=== PATIENT | female | born 2000 | race American Indian/Alaskan Native ===

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

== ENCOUNTER 2018-10-30 21:34 | Emergency (ER) | payer SELFPAY ==
[2018-10-30 21:39] VITALS: BP 128/91
[2018-10-30 22:04] LABS: Basophils # (Auto) 0.1 K/mm3 (0.0-0.1); Basophils % (Auto) 1.5 % (0.0-1.8); Eosinophils # (Auto) 0.2 K/mm3 (0.0-0.4); Eosinophils % (Auto) 2.3 % (0.0-4.3); Hematocrit 38.5 % (30.3-42.9); Hemoglobin 13.3 gm/dl (10.1-14.3); Lymphocytes # (Auto) 2.8 K/mm3 (1.2-5.4); Lymphocytes % (Auto) 39.4 % (13.4-35.0); Mean Corpuscular HGB Conc 35 % (30-34); Mean Corpuscular Volume 90 fl (79-97); Monocytes # (Auto) 0.6 K/mm3 (0.0-0.8); Monocytes % (Auto) 8.7 % (0.0-7.3); Platelet Count 226 K/mm3 (140-440); Red Blood Count 4.29 M/mm3 (3.65-5.03); Red Cell Distribution Width 14.1 % (13.2-15.2)
[2018-10-30 22:15] LABS: Bilirubin,Urine NEG (Negative); Blood,Urine NEG (Negative); Color,Urine Yellow (Yellow); Mucus,Urine FEW /HPF; Protein,Urine <15 mg/dL mg/dL (Negative); Urobilinogen,Urine < 2.0 mg/dL (<2.0)
[2018-10-30 22:30] LABS: Alanine Aminotransferase 24 units/L (7-56); BUN/Creatinine Ratio 13; Blood Urea Nitrogen 9 mg/dL (7-17); Hemolysis Index 8
[2018-10-30] MEDS ORDERED: NACL 0.9% 1000 ML 1,000 ML ONE (23:43)
[2018-10-30] MEDS ORDERED: NACL 0.9% 1000 ML 1,000 ML IV ONE (23:43)
== END 2018-10-31 00:30 | disposition left against medical advice (07) ==
LOC: ED 21:34
DX: R11.2 Nausea with vomiting, unspecified (principal); Z53.21 Procedure and treatment not carried out due to patient leaving prior to being seen by health care provider
CPT/HCPCS: 36415; 80053; 81001; 84703; 85025; J7030

== ENCOUNTER 2018-12-19 15:38 | Emergency (ER) | payer SELFPAY ==
[2018-12-19 15:49] VITALS: BP 129/89
--- NOTE | 2018-12-19 15:51 | Emergency Department Report ---
Blank Doc - Documentation Documentation: This is a 18-year-old female that presents with intermittent headaches and thomas sea. This initial assessment/diagnostic orders/clinical plan/treatment(s) is/are subject to change based on patient's health status, clinical progression and re- assessment by fellow clinical providers in the ED. Further treatment and workup at subsequent clinical providers discretion. Patient/guardians urged not to elope from the ED as their condition may be serious if not clinically assessed a nd managed. Initial orders include: 1- Patient sent to [facility] for further evaluation and treatment 2- UA
[2018-12-19 16:29] LABS: Bilirubin,Urine NEG (Negative); Blood,Urine NEG (Negative); Color,Urine Yellow (Yellow); Protein,Urine <15 mg/dL mg/dL (Negative); Urobilinogen,Urine < 2.0 mg/dL (<2.0)
[2018-12-19 16:32] LABS: HCG Qualitative,Urine Negative (Negative)
[2018-12-19] MEDS ORDERED: IBUPROFEN PO ONE (17:08)
--- NOTE | 2018-12-19 17:10 | Emergency Department Report ---
ED Dysuria HPI - HPI Chief Complaint: Nausea/Vomiting/Diarrhea Stated Complaint: NAUSEA/HEADACHES Time Seen by Provider: 12/19/18 15:50 Duration: 1 Day Severity: None Symptoms: Dysuria: No, Frequency: No, Suprapubic Pain: No, Flank Pain: No, Fever: No, Hematuria: No, Abdominal Pain: No, Previous UTI's: No Other History: Patient is a 18-year-old female who comes to the ER complaining of nausea and headache intermittently off and on for a couple days. She states her last menstrual cycle was November 28. She denies any medical history or surgeries. She is on no home medications. Family reports the patient was concerned that she was and she came to the emergency room. She has no vaginal bleeding or abdominal pain no vaginal discharge. She is ambulatory with normal vital signs, nontoxic and afebrile. ED Review of Systems ROS: Stated complaint: NAUSEA/HEADACHES Other details as noted in HPI Comment: All other systems reviewed and negative ED Past Medical Hx - Past Medical History Previous Medical History?: Yes Hx Hypertension: No Hx Diabetes: No Hx Deep Vein Thrombosis: No Hx Renal Disease: No Hx Sickle Cell Disease: No Hx Seizures: No Hx Asthma: No Hx HIV: No Additional medical history: pre-eclampsia - Surgical History Past Surgical History?: No Additional Surgical History: vaginal - Social History Smoking Status: Current Every Day Smoker Substance Use Type: None - Medications Home Medications: Home Medications Medication Instructions Recorded Confirmed Last Taken Type Miconazole Nitrate [Monistat 7] 44 gm VG QHS #7 cmb.pf.crm 07/06/15 Unknown Rx Ondansetron [Zofran Odt] 4 mg PO Q8H PRN #15 tab.rapdis 07/06/15 Unknown Rx metroNIDAZOLE 0.75% [Vandazole 1 applicator VG QHS #5 tube 07/06/15 Unknown Rx 0.75% VAGINAL] Ciprofloxacin HCl [Ciprofloxacin 500 mg PO BID #14 tablet 12/05/15 Unknown Rx TAB] HYDROcodone/APAP 5-325 [[place] 1 each PO Q6HR PRN #10 tablet 12/05/15 Unknown Rx 5/325] Ibuprofen [Motrin 600 MG tab] 600 mg PO Q8H PRN #30 tablet 12/05/15 Unknown Rx Nitrofurantoin Macrocrystal 100 mg PO BID 5 Days #10 capsule 11/25/17 Unknown Rx [Nitrofurantoin] metroNIDAZOLE [Flagyl] 500 mg PO Q8HR 7 Days #21 tablet 04/20/18 Unknown Rx Dysuria Exam - Exam General: Vital signs noted. No distress. Alert and acting appropriately. Exam: Yes Moist Mucous Membranes, No CVA Tenderness, No Abdominal Tenderness, No Rigidity or Guarding Labs: Lab Results 12/19/18 Range/Units 16:09 Urine Color Yellow (Yellow) Urine Turbidity Clear (Clear) Urine pH 6.0 (5.0-7.0) Ur Specific [place] 1.016 (1.003-1.030) Urine Protein <15 mg/dl (Negative) mg/dL Urine Glucose (UA) Neg (Negative) mg/dL Urine Ketones Neg (Negative) mg/dL Urine Blood Neg (Negative) Urine Nitrite Neg (Negative) Urine Bilirubin Neg (Negative) Urine Urobilinogen < 2.0 (<2.0) mg/dL Ur Leukocyte Esterase Neg (Negative) Urine WBC (Auto) 2.0 (0.0-6.0) /HPF Urine RBC (Auto) 3.0 (0.0-6.0) /HPF U Epithel Cells (Auto) 1.0 (0-13.0) /HPF Urine HCG, Qual Negative (Negative) ED Course Vital Signs 12/19/18 15:47 Temperature 98.1 F Pulse Rate 100 H Respiratory 18 Rate Blood Pressure 129/89 O2 Sat by Pulse 100 Oximetry ED Medical Decision Making - Medical Decision Making Vital Signs 12/19/18 15:47 Temperature 98.1 F Pulse Rate 100 H Respiratory 18 Rate Blood Pressure 129/89 O2 Sat by Pulse 100 Oximetry Labs 12/19/18 16:09 Urine Color Yellow Urine Turbidity Clear Urine pH 6.0 Ur Specific [place] 1.016 Urine Protein <15 mg/dl Urine Glucose (UA) Neg Urine Ketones Neg Urine Blood Neg Urine Nitrite Neg Urine Bilirubin Neg Urine Urobilinogen < 2.0 Ur Leukocyte Esterase Neg Urine WBC (Auto) 2.0 Urine RBC (Auto) 3.0 U Epithel Cells (Auto) 1.0 Urine HCG, Qual Negative PREG NEG MOTRIN FOR HEADACHE DC HOME WITH FAMILY - Differential Diagnosis RO PREG Critical care attestation.: If time is entered above; I have spent that time in minutes in the direct care of this critically ill patient, excluding procedure time. ED Disposition Clinical Impression: Headache Disposition: [id number]-01 TO HOME OR SELFCARE Is pt being admited?: No Does the pt Need Aspirin: No Condition: Stable Instructions: Acute Headache (ED) Additional Instructions: DIET TOLERATED MEDS ORDERED TODAY IN ER FOLLOW INSTRUCTIONS ON THE BOTTLE FOLLOW UP PCP WITHIN 48 HOURS TO ENSURE YOU ARE GETTING BETTER ACTIVITY TOLERATED MOTRIN OR TYLENOL FOR PAIN OR FEVER RETURN TO THE ER FOR WORSENING SYMPTOMS NOT RELIEVED BY YOUR MEDICATIONS. PREG NEGATIVE Referrals: MATEUS PATEL MD [Staff Physician] - 3-5 Days Time of Disposition: 17:08
== END 2018-12-19 17:29 | disposition home or self-care (01) ==
LOC: ED 15:38
DX: R11.2 Nausea with vomiting, unspecified (principal); R19.7 Diarrhea, unspecified; R51 Headache; F17.200 Nicotine dependence, unspecified, uncomplicated; Z79.1 Long term (current) use of non-steroidal anti-inflammatories (NSAID); Z79.899 Other long term (current) drug therapy
CPT/HCPCS: 81001; 81025; 99283

== ENCOUNTER 2019-02-06 18:24 | Emergency (ER) | payer SELFPAY ==
[2019-02-06] MEDS ORDERED: ZOFRAN IV ONE (18:38)
[2019-02-06] MEDS ORDERED: BENADRYL IV ONE (18:38)
--- NOTE | 2019-02-06 18:38 | Event Note ---
ED Screening Note Date of service: 02/06/19 Time: 18:34 ED Screening Note: 18 y o with hx of migraine presents with sharp intermittent headaches thats not resolved with advil positive nausea, intermittent blurred vision This initial assessment/diagnostic orders/clinical plan/treatment(s) is/are subject to change based on patients health status, clinical progression and re- assessment by fellow clinical providers in the ED. Further treatment and workup at subsequent clinical providers discretion. Patient/guardian urged not to elope from the ED as their condition may be serious if not clinically assessed and managed. Initial orders include: ua,upt IV benadryl,zofran, toradol
[2019-02-06 19:43] LABS: Amorphous Crystals,Urine Few; Bilirubin,Urine NEG (Negative); Blood,Urine NEG (Negative); Color,Urine Yellow (Yellow); HCG Qualitative,Urine Negative (Negative); Protein,Urine <15 mg/dL mg/dL (Negative); Urobilinogen,Urine < 2.0 mg/dL (<2.0)
[2019-02-06] MEDS ORDERED: FIORICET PO ONE (20:18)
--- NOTE | 2019-02-06 22:07 | Emergency Department Report ---
ED General Adult HPI - General Chief complaint: Headache Stated complaint: MIGRANE/MILK LEAKING/PAIN Time Seen by Provider: 02/06/19 18:34 Source: patient Mode of arrival: Ambulatory Limitations: No Limitations - History of Present Illness Initial comments: Patient is a 18-year-old female with a history of chronic migraine headaches who presents to the ED with complaint of acute exacerbation of chronic migraine headaches for the last 1 week, worse in the last 2 days. Patient states that she's been taking [id number] pain medication with no relief. Patient states that this is typical of her chronic migraine headaches and not worst headache of her life. Patient also complains of nausea but no vomiting. Patient denies nasal and sinus congestion, frontal sinus pressure, sore throat, fever, chills, cough, change in vision, neck pain, chest pain or shortness of breath or abdominal pain. MD Complaint: migraine headache -: Sudden, week(s) (1) Location: head Radiation: non-radiation Severity scale (0 -10): 10 Quality: aching, sharp Consistency: constant Improves with: none Worsens with: none Associated Symptoms: denies other symptoms, headaches, nausea/vomiting. denies: confusion, chest pain, cough, diaphoresis, fever/chills, loss of appetite, malaise, rash, seizure, shortness of breath, syncope, weakness, other Treatments Prior to Arrival: NSAID - Related Data Previous Rx's Medication Instructions Recorded Last Taken Type Miconazole Nitrate [Monistat 7] 44 gm VG QHS #7 cmb.pf.crm 07/06/15 Unknown Rx Ondansetron [Zofran Odt] 4 mg PO Q8H PRN #15 tab.rapdis 07/06/15 Unknown Rx metroNIDAZOLE 0.75% [Vandazole 1 applicator VG QHS #5 tube 07/06/15 Unknown Rx 0.75% VAGINAL] Ciprofloxacin HCl [Ciprofloxacin 500 mg PO BID #14 tablet 12/05/15 Unknown Rx TAB] HYDROcodone/APAP 5-325 [[place] 1 each PO Q6HR PRN #10 tablet 12/05/15 Unknown Rx 5/325] Ibuprofen [Motrin 600 MG tab] 600 mg PO Q8H PRN #30 tablet 12/05/15 Unknown Rx Nitrofurantoin Macrocrystal 100 mg PO BID 5 Days #10 capsule 11/25/17 Unknown Rx [Nitrofurantoin] metroNIDAZOLE [Flagyl] 500 mg PO Q8HR 7 Days #21 tablet 04/20/18 Unknown Rx Butalb/Acetamin/Caff 50-325-40 1 tab PO Q6HR PRN #12 tab 02/06/19 Unknown Rx [Fioricet 50-325-40] Promethazine [Phenergan] 25 mg PO Q6HR PRN #24 tab 02/06/19 Unknown Rx SUMAtriptan SUCCINATE [Imitrex] 50 mg PO Q8H PRN #24 tablet 02/06/19 Unknown Rx Allergies Allergy/AdvReac Type Severity Reaction Status Date / Time ketorolac tromethamine Allergy Swelling Verified 07/06/15 19:20 [From Toradol] tramadol Allergy Swelling Verified 07/06/15 19:21 ED Review of Systems ROS: Stated complaint: MIGRANE/MILK LEAKING/PAIN Other details as noted in HPI Constitutional: denies: chills, fever Eyes: denies: eye pain, eye discharge, vision change ENT: denies: ear pain, throat pain Respiratory: denies: cough, shortness of breath, wheezing Cardiovascular: denies: chest pain, palpitations Endocrine: no symptoms reported Gastrointestinal: nausea. denies: abdominal pain, diarrhea Genitourinary: denies: urgency, dysuria, discharge Musculoskeletal: denies: back pain, joint swelling, arthralgia Skin: denies: rash, lesions Neurological: headache. denies: weakness, paresthesias Psychiatric: denies: anxiety, depression Hematological/Lymphatic: denies: easy bleeding, easy bruising ED Past Medical Hx - Past Medical History Previous Medical History?: Yes Hx Hypertension: No Hx Diabetes: No Hx Deep Vein Thrombosis: No Hx Renal Disease: No Hx Sickle Cell Disease: No Hx Seizures: No Hx Asthma: No Hx HIV: No Additional medical history: pre-eclampsia - Surgical History Past Surgical History?: No Additional Surgical History: vaginal - Social History Smoking Status: Current Every Day Smoker Substance Use Type: None - Medications Home Medications: Home Medications Medication Instructions Recorded Confirmed Last Taken Type Miconazole Nitrate [Monistat 7] 44 gm VG QHS #7 cmb.pf.crm 07/06/15 Unknown Rx Ondansetron [Zofran Odt] 4 mg PO Q8H PRN #15 tab.rapdis 07/06/15 Unknown Rx metroNIDAZOLE 0.75% [Vandazole 1 applicator VG QHS #5 tube 07/06/15 Unknown Rx 0.75% VAGINAL] Ciprofloxacin HCl [Ciprofloxacin 500 mg PO BID #14 tablet 12/05/15 Unknown Rx TAB] HYDROcodone/APAP 5-325 [[place] 1 each PO Q6HR PRN #10 tablet 12/05/15 Unknown Rx 5/325] Ibuprofen [Motrin 600 MG tab] 600 mg PO Q8H PRN #30 tablet 12/05/15 Unknown Rx Nitrofurantoin Macrocrystal 100 mg PO BID 5 Days #10 capsule 11/25/17 Unknown Rx [Nitrofurantoin] metroNIDAZOLE [Flagyl] 500 mg PO Q8HR 7 Days #21 tablet 04/20/18 Unknown Rx Butalb/Acetamin/Caff 50-325-40 1 tab PO Q6HR PRN #12 tab 02/06/19 Unknown Rx [Fioricet 50-325-40] Promethazine [Phenergan] 25 mg PO Q6HR PRN #24 tab 02/06/19 Unknown Rx SUMAtriptan SUCCINATE [Imitrex] 50 mg PO Q8H PRN #24 tablet 02/06/19 Unknown Rx ED Physical Exam - General Limitations: No Limitations General appearance: alert, in no apparent distress - Head Head exam: Present: atraumatic, normocephalic, normal inspection - Eye Eye exam: Present: normal appearance, PERRL, EOMI. Absent: scleral icterus, conjunctival injection, nystagmus - ENT ENT exam: Present: normal exam, normal orophraynx, mucous membranes moist, TM's normal bilaterally, normal external ear exam - Neck Neck exam: Present: normal inspection, full ROM - Respiratory Respiratory exam: Present: normal lung sounds bilaterally. Absent: respiratory distress, wheezes, chest wall tenderness, accessory muscle use, decreased breath sounds, prolonged expiratory - Cardiovascular Cardiovascular Exam: Present: regular rate, normal rhythm, normal heart sounds. Absent: systolic murmur, diastolic murmur, rubs, gallop - GI/Abdominal GI/Abdominal exam: Present: soft, normal bowel sounds. Absent: tenderness, guarding, rebound, hyperactive bowel sounds, hypoactive bowel sounds - Rectal Rectal exam: Present: deferred - Extremities Exam Extremities exam: Present: normal inspection, full ROM, normal capillary refill - Back Exam Back exam: Present: normal inspection, full ROM. Absent: tenderness, CVA tenderness (R), CVA tenderness (L), muscle spasm, paraspinal tenderness - Neurological Exam Neurological exam: Present: alert, oriented X3, CN II-XII intact, normal gait, reflexes normal - Psychiatric Psychiatric exam: Present: normal affect, normal mood - Skin Skin exam: Present: warm, dry, intact, normal color. Absent: rash ED Course Vital Signs 02/06/19 02/06/19 18:34 20:37 Temperature 98.2 F Pulse Rate 66 Respiratory 18 18 Rate Blood Pressure 142/98 O2 Sat by Pulse 100 Oximetry - Reevaluation(s) Reevaluation #1: 02/06/19 22:10 This is a 18-year-old female with a history of chronic migraine headaches presented to the ED with acute exacerbation of her chronic migraine headaches with nausea. In the ED, patient is alert and oriented 3 and dispensed an distress appears to be in pain. Patient was treated for pain and also given antiemetics. On reevaluation, patient fell asleep in the ED and the headache resolved. Patient discharged home on prescriptions were migraine headaches and antiemetics and advised to follow-up with her primary care physician in 3-5 days for reevaluation or return to the ED immediately if symptoms get worse. ED Medical Decision Making - Medical Decision Making This is a 18-year-old female with a history of chronic migraine headaches presented to the ED with acute exacerbation of her chronic migraine headaches with nausea. In the ED, patient is alert and oriented 3 and dispensed an distress appears to be in pain. Patient was treated for pain and also given antiemetics. On reevaluation, patient fell asleep in the ED and the headache resolved. Patient discharged home on prescriptions were migraine headaches and antiemetics and advised to follow-up with her primary care physician in 3-5 days for reevaluation or return to the ED immediately if symptoms get worse. - Differential Diagnosis Migraine headache, tension type headache, cluster headache, sinus headache Critical care attestation.: If time is entered above; I have spent that time in minutes in the direct care of this critically ill patient, excluding procedure time. ED Disposition Clinical Impression: Nausea and vomiting in adult Migraine headache without aura Qualifiers: Status migrainosus presence: without status migrainosus Intractability: not intractable Qualified Code(s): G43.009 - Migraine without aura, not intractable, without status migrainosus Disposition: TO HOME OR SELFCARE Is pt being admited?: No Does the pt Need Aspirin: No Condition: Stable Instructions: Migraine Headache (ED), Acute Nausea and Vomiting (ED) Additional Instructions: Take medications with food, drink plenty of fluids fluids and follow-up with your primary care physician in 5-7 days for reevaluation. Return to the ED immediately if symptoms get worse. Prescriptions: Butalb/Acetamin/Caff 50-325-40 [Fioricet 50-325-40] 1 tab PO Q6HR PRN #12 tab PRN Reason: Headache SUMAtriptan SUCCINATE [Imitrex] 50 mg PO Q8H PRN #24 tablet PRN Reason: Headache Promethazine [Phenergan] 25 mg PO Q6HR PRN #24 tab PRN Reason: Nausea Referrals: PRIMARY CARE, [Primary Care Provider] - 3-5 Days Time of Disposition: 22:02 Print Language: GERMAN
[2019-02-06 22:16] VITALS: BP 118/80
== END 2019-02-06 22:16 | disposition home or self-care (01) ==
LOC: ED 18:24
DX: G43.009 Migraine without aura, not intractable, without status migrainosus (principal); R11.2 Nausea with vomiting, unspecified; F17.200 Nicotine dependence, unspecified, uncomplicated; Z88.6 Allergy status to analgesic agent
CPT/HCPCS: 81001; 81025; 96374; 96375; 99283; J1200; J2405

== ENCOUNTER 2019-02-18 18:23 | Emergency (ER) | payer SELFPAY ==
[2019-02-18 18:34] VITALS: BP 132/82
--- NOTE | 2019-02-18 19:17 | Event Note ---
ED Screening Note Date of service: 02/18/19 Time: 19:16 ED Screening Note: This is a 18 y.o. F. that presents to the ER with pelvic pain and vaginal discharge that started this morning. Patient reports similar symptoms 2 weeks ago. This initial assessment/diagnostic orders/clinical plan/treatment(s) is/are subject to change based on patients health status, clinical progression and re- assessment by fellow clinical providers in the ED. Further treatment and workup at subsequent clinical providers discretion. Patient/guardian urged not to elope from the ED as their condition may be serious if not clinically assessed and managed. Initial orders include: Labs and pelvic exam
[2019-02-18 21:37] LABS: Bacteria,Urine 1+ /HPF (Negative); Bilirubin,Urine NEG (Negative); Blood,Urine NEG (Negative); Color,Urine Yellow (Yellow); Mucus,Urine FEW /HPF; Protein,Urine <15 mg/dL mg/dL (Negative); Urobilinogen,Urine < 2.0 mg/dL (<2.0)
[2019-02-18 21:39] LABS: HCG Qualitative,Urine Negative (Negative)
== END 2019-02-18 22:13 | disposition left against medical advice (07) ==
LOC: ED 18:23
DX: R07.89 Other chest pain (principal); Z53.21 Procedure and treatment not carried out due to patient leaving prior to being seen by health care provider
CPT/HCPCS: 81001; 81025